=== PATIENT | female | born 1995 | race Caucasian/White ===

== ENCOUNTER 2024-12-24 13:34 | Outpatient (CLI) | payer OTHER, SELFPAY ==
--- NOTE | ~2024-12-24 | US_ITS ---
US soft tissue upper back Ordering provider: Salo Yin, GORGE History: . benign lipomatous neoplasm of skin subcutaneou . Comparison: None. FINDINGS/impression: Slightly hypoechoic area measuring 0.7 x 0.7 x 0.5 cm is noted which may represent a small cyst in th e area of concern. Other differential include lipoma and lymph node although this likely. Follow-up a dvised. Reviewed, dictated and finalized at location A.
--- OUTSIDE RECORDS SUMMARY | 2024-12-24 13:45 | XMS_ITS | Clinical Summary ---
Author Organization [facility] Address [address] [place] [address] Care Team Providers Care Senior Software Project Manager Name Role Phone Unavailable Primary Care Provider Unavailabl e Source Comments [facility],non-owned Affiliates and Associated Physician Practices is amultiple site organization consisting of ambulatory clinics and hospital sitesin [place], [place], [place] and [place]. This disclosure is being madepursuant to the Care Everywhere program and may not contain all information available regarding this patient. Last updated 18.[facility] Encounters Date Type Department Care Team Description 11/24/2024 Travel from Last 3 Months Social History Tobacco Use Types Packs/Day Years Used Date Smoking Tobacco: Never Assessed Comments Unknown Sex and Gender Information Value Date Recorded Sex Assigned at Not on file Legal Sex Female 3:24 PM CDT Gender Identity Not on file Sexual Orientation Not on file Plan of Treatment Upcoming Encounters Date Type Department Care Team (Late st Contact Info) Description 02/12/2025 2:00 PM CDT Office Visit [facility] - Ophthalmology [address] [place] [address] [phone] Dot Ricketts, CAGE [employer] SUPER[employer] [address] [place] [address] [place] [id number] Health Maintenance Due Date Last Done Comments PAP SMEAR 1995 HIV SCREENING 11/14/2010 HEPATITIS C SCREENING 11/10/2013 DTAP/TDAP/TD VACCINES (1 - Tdap) 11/14/2014 HEPATITIS B VACCINE (1 of 3 - 19+ 3-dose series) 11/14/2014 COVID-19 VACCINE (1 - 2023-2 5 season) 2024 DEPRESSION SCREENING 07/23/2024 INFLUENZA VACCINE (Season Ended) 2025 ZOSTER VACCINE (1 of 2) 11/14/2045 HIB VACCINE Aged Out No longer eligi ble based on patient's age to complete this topic HPV VACCINE Aged Out No longer eligi ble based on patient's age to complete this topic MENINGOCOCCAL (Group B) VACC INE SHARED DECISION-MAKING Aged Out No longer eligibl e based on patient's age to complete this topic MENINGOCOCCAL GROUPS A/C/Y/W VACCINE Aged Out No longer eligible b ased on patient's age to complete this topic PNEUMOCOCCAL VACCINE Aged Out No long er eligible based on patient's age to complete this topic
--- OUTSIDE RECORDS SUMMARY | 2024-12-24 13:45 | XMS_ITS | Data Portability ---
Author Organization [facility] Address [address] [place] [address] Assessment No assessment recorded. Plan of Treatment Reminders Order Date Submit Date Provider Last Modified By Organization Details Last Modified Time Details Appointments None recorded. Lab respiratory allergen panel - [facility] 2021 [facility], [address], [address], 19:18:38 food allergen panel, serum 2021 [facility], [address], [address], 19:18:39 CBC w/ auto diff 2021 [facility], [address] [place], [address], 01:09:41 TSH, serum or plasma 2021 [facility], [address], [address], 01:09:42 CMP, serum or plasma 2021 [facility], [address], [address], 01:09:40 magnesium, serum or plasma 2021 [place] [facility], [address] [place], [address], 01:09:39 Referral None recorded. Procedures None recorded. Surgeries None recorded. Imaging None recorded. Medication Orders Symbicort 160 mcg-4.5 mcg/actuati on HFA aerosol inhaler 2022 023 [facility], [address] [place], [address], 3 12:29:29 fluoxetine 20 mg capsule 2022 023 [facility], [address] [place], [address], 3 12:29:28 Symbicort 160 mcg-4.5 mcg/actuati on HFA aerosol inhaler 2021 022 [facility], [address] [place], [address], 2 10:54:24 fluox[facility] 20 mg capsule 2021 [facility] [address] [place], [address], 3 12:24:32 ProAir HFA 90 mcg/actuati on aerosol inhaler 2021 022 [facility], [address] [place], [address], 2 11:16:25 Breo Ellipta 100 mcg-25 mcg/dose powder for inhalation 2021 022 [facility], [address] [place], [address], 2 11:40:23 Singulair 10 mg tablet 2021 022 [facility], [address] [place], [address], 3 12:20:53 prednisone 20 mg tablet 2021 022 [facility], [address] [place] [address], [address], 11:00:48 Ventolin HFA 90 mcg/actuati on aerosol inhaler 2021 022 [facility], [address] [place] [address], [address], 09:36:29 Singulair 10 mg tablet 2021 022 [facility], [address] [place] [address], [address], 12:20:53 fluoxetine 40 mg capsule 2021 022 [facility], [address] [place] [address], [address], 10:29:42 fluoxetine 20 mg capsule 2021 022 [facility], [address] [place] [address], [address], 10:29:43 Patient TargetsNo targets recorded. Patient Instructions Encounter Date Encounter Id Patient Instructions Last Modified By Organization Details Last Modified Time 01/25/2022 [id number] depression treatment: care instructions Not available 01/25/2022 10:32:16 Assessment and plan discussed as noted above. Patient verbalizes understanding and agrees with plan. Instructed to call office with further questions or concerns. Total duration of time spent with patient: Minutes 20 Not available 01/25/2022 10:32:04 03/08/2022 [id number] complete PFT w/ post bronchodilator spirometry* [facility] Not available 09/24/2022 05:01:37 controlling your asthma: care instructions Not available 03/08/2022 11:39:52 Assessment and plan discussed as noted above. Patient verbalizes understanding and agrees with plan. Instructed to call office with further questions or concerns. Total duration of time spent with patient: Minutes 20 Not available 03/08/2022 11:40:02 05/09/2022 [id number] asthma attack: care instructions Not available 05/09/2022 10:54:27 controlling your asthma: care instructions Not available 05/09/2022 10:54:27 walking for exercise: care instructions Not available 05/09/2022 13:33:48 eating healthy foods: care instructions Not available 05/09/2022 13:33:48 Assessment and plan as noted above and discussed with patient. Follow up as needed if symptoms persist or worsen. Will contact patient with lab results and patient knows to call if they do not hear any results in a reasonable time frame. fu in one month Not available 05/09/2022 13:33:55 12/14/2022 [id number] asthma attack: care instructions Not available 12/14/2022 12:29:21 controlling your asthma: care instructions Not available 12/14/2022 12:29:21 walking for exercise: care instructions Not available 12/14/2022 12:29:21 eating healthy foods: care instructions Not available 12/14/2022 12:29:21 Assessment and plan discussed as noted above. Patient verbalizes understanding and agrees with plan. Instructed to call office with further questions or concerns. Total duration of time spent with patient: Minutes 20 Not available 12/14/2022 12:32:18 Reason for Referral None Reported. Results Created Date Observation Date Name Description Value Unit Range Abnormal Flag Note LastModifiedBy Organization Detail LastModifiedTime 03/10/2003/10/2022 MAGNE SIUM magnesium 2.0 mg/dL 1.5-2. 5 normal Not Available [facility] [address] [place], [address], 03/10/2022 01:09:39 03/10/20 22 03/10/2022 COMPR EHENS SULEMA METAB OLIC PANEL glucose 120 mg/dL 65-99 high Fasti ng refer ence inter girma For someo ne witho ut known diabe edwin, a gluco se value betwe en 100 and 125 mg/dL is consi stent with predi abete s and shoul d be confi rmed with a follo w-up test. Not Available [facility] [employer] [address] [place], [address], 03/10/2022 01:09:40 03/10/20 22 03/10/2022 COMPR EHENS SULEMA METAB OLIC PANEL urea nitrogen (BUN) 10 mg/dL 7-25 normal Not Available [facility] [address], [address], 03/10/2022 01:09:40 03/10/20 22 03/10/2022 COMPR EHENS SULEMA METAB OLIC PANEL creatinine 0.74 mg/dL 0.50-0 .96 normal Not Available [employer] [address] [address] [place], [address], 03/10/2022 01:09:40 03/10/20 22 03/10/2022 COMPR EHENS SULEMA METAB OLIC PANEL eGFR 114 mL/mi n/1.7 3m2 > or = 60 normal The eGFR is based on the CKD-E PI 2020 equat ion. To calcu late the new eGFR from a previ ous Creat inine or Cysta tin C resul t, go to https ://irlanda teresa.bienvenido argueta/susie ward s/ kdoqi /gfr% 5Fcal culat or Not Available [facility] [address] [address] [place], [address], 03/10/2022 01:09:40 03/10/20 22 03/10/2022 COMPR EHENS SULEMA METAB OLIC PANEL BUN/creatini ne ratio NOT APPLIC ABLE (calc ) 6-22 Not Available [facility] [address] [address] [place], [address], 03/10/2022 01:09:40 03/10/20 22 03/10/2022 COMPR EHENS SULEMA METAB OLIC PANEL sodium 137 mmol/ L 135-14 6 normal Not Available [address], [address], 03/10/2022 01:09:40 03/10/20 22 03/10/2022 COMPR EHENS SULEMA METAB OLIC PANEL potassium 3.9 mmol/ L 3.5-5. 3 normal Not Available [address], [address], 03/10/2022 01:09:40 03/10/20 22 03/10/2022 COMPR EHENS SULEMA METAB OLIC PANEL chloride 104 mmol/ L 98-110 normal Not Available [address], [address], 03/10/2022 01:09:40 03/10/20 22 03/10/2022 COMPR EHENS SULEMA METAB OLIC PANEL carbon dioxide 23 mmol/ L 20-32 normal Not Available [address], [address], 03/10/2022 01:09:40 03/10/20 22 03/10/2022 COMPR EHENS SULEMA METAB OLIC PANEL calcium 9.1 mg/dL 8.6-10 .2 normal Not Available [address], [address], 03/10/2022 01:09:40 03/10/20 22 03/10/2022 COMPR EHENS SULEMA METAB OLIC PANEL protein, total 7.0 g/dL 6.1-8. 1 normal Not Available [address], [address], 03/10/2022 01:09:40 03/10/20 22 03/10/2022 COMPR EHENS SULEMA METAB OLIC PANEL albumin 4.1 g/dL 3.6-5. 1 normal Not Available [address] [place], [address], 03/10/2022 01:09:40 03/10/20 22 03/10/2022 COMPR EHENS SULEMA METAB OLIC PANEL globulin 2.9 g/dL_ (calc ) 1.9-3. 7 normal Not Available [address] [address] [place], [address], 03/10/2022 01:09:40 03/10/20 22 03/10/2022 COMPR EHENS SULEMA METAB OLIC PANEL albumin/glob ulin ratio 1.4 (calc ) 1.0-2. 5 normal Not Available [address], [address], 03/10/2022 01:09:40 03/10/20 22 03/10/2022 COMPR EHENS SULEMA METAB OLIC PANEL bilirubin, total 0.6 mg/dL 0.2-1. 2 normal Not Available [address] [place], [address], 03/10/2022 01:09:40 03/10/20 22 03/10/2022 COMPR EHENS SULEMA METAB OLIC PANEL alkaline phosphatase 72 U/L 31-125 normal Not Available [address] [address] [place], [address], 03/10/2022 01:09:40 03/10/20 22 03/10/2022 COMPR EHENS SULEMA METAB OLIC PANEL AST 16 U/L 10-30 normal Not Available [address] [address] [place], [address], 03/10/2022 01:09:40 03/10/20 22 03/10/2022 COMPR EHENS SULEMA METAB OLIC PANEL ALT 13 U/L 6-29 normal Not Available [address] [address] [place], [address], 03/10/2022 01:09:40 08/19/20 22 03/10/2022 CBC (INCL UDES DIFF/ PLT) white blood cell count 7.9 thous and/u L 3.8-10 .8 normal Not Available [address], [address], 03/10/2022 01:09:41 03/10/20 22 03/10/2022 CBC (INCL UDES DIFF/ PLT) red blood cell count 4.82 madi on/uL 3.80-5 .10 normal Not Available [address], [address], 03/10/2022 01:09:41 03/10/20 22 03/10/2022 CBC (INCL UDES DIFF/ PLT) hemoglobin 13.8 g/dL 11.7-1 5.5 normal Not Available [address], [address], 03/10/2022 01:09:41 03/10/20 22 03/10/2022 CBC (INCL UDES DIFF/ PLT) hematocrit 42.4 % 35.0-4 5.0 normal Not Available [address], [address], 03/10/2022 01:09:41 03/10/20 22 03/10/2022 CBC (INCL UDES DIFF/ PLT) MCV 88.0 fL 80.0-1 00.0 normal Not Available [address], [address], 03/10/2022 01:09:41 03/10/20 22 03/10/2022 CBC (INCL UDES DIFF/ PLT) MCH 28.6 pg 27.0-3 3.0 normal Not Available [address], [address], 03/10/2022 01:09:41 03/10/20 22 03/10/2022 CBC (INCL UDES DIFF/ PLT) MCHC 32.5 g/dL 32.0-3 6.0 normal Not Available [address], [address], 03/10/2022 01:09:41 03/10/20 22 03/10/2022 CBC (INCL UDES DIFF/ PLT) RDW 13.5 % 11.0-1 5.0 normal Not Available [address], [address], 03/10/2022 01:09:41 03/10/20 22 03/10/2022 CBC (INCL UDES DIFF/ PLT) platelet count 388 thous and/u L 140-40 0 normal Not Available [address], [address], 03/10/2022 01:09:41 03/10/20 22 03/10/2022 CBC (INCL UDES DIFF/ PLT) MPV 9.9 fL 7.5-12 .5 normal Not Available [address], [address], 03/10/2022 01:09:41 03/10/20 22 03/10/2022 CBC (INCL UDES DIFF/ PLT) absolute neutrophils 5728 cells /uL 1500-7 800 normal Not Available [address], [address], 03/10/2022 01:09:41 03/10/20 22 03/10/2022 CBC (INCL UDES DIFF/ PLT) absolute lymphocytes 1754 cells /uL 850-39 00 normal Not Available [address], [address], 03/10/2022 01:09:41 03/10/20 22 03/10/2022 CBC (INCL UDES DIFF/ PLT) absolute monocytes 340 cells /uL 200-95 0 normal Not Available [address], [address], 03/10/2022 01:09:41 03/10/20 22 03/10/2022 CBC (INCL UDES DIFF/ PLT) absolute eosinophils 47 cells /uL 15-500 normal Not Available [address], [address], 03/10/2022 01:09:41 03/10/20 22 03/10/2022 CBC (INCL UDES DIFF/ PLT) absolute basophils 32 cells /uL 0-200 normal Not Available [address], [address], 03/10/2022 01:09:41 03/10/20 22 03/10/2022 CBC (INCL UDES DIFF/ PLT) neutrophils 72.5 % normal Not Available [facility] [address], [address], 03/10/2022 01:09:41 03/10/20 22 03/10/2022 CBC (INCL UDES DIFF/ PLT) lymphocytes 22.2 % normal Not Available [facility] [address], [address], 03/10/2022 01:09:41 03/10/20 22 03/10/2022 CBC (INCL UDES DIFF/ PLT) monocytes 4.3 % normal Not Available [facility] [address], [address], 03/10/2022 01:09:41 03/10/20 22 03/10/2022 CBC (INCL UDES DIFF/ PLT) eosinophils 0.6 % normal Not Available [facility] [address], [address], 03/10/2022 01:09:41 03/10/20 22 03/10/2022 CBC (INCL UDES DIFF/ PLT) basophils 0.4 % normal Not Available [facility] [address], [address], 03/10/2022 01:09:41 03/10/20 22 03/10/2022 TSH W/REF SILVANO TO FT4 TSH w/reflex to FT4 0.58 mIU/L normal Refer ence Range > or = 20 Years 0.40- 4.50 Pregn gonzalo Range s First trime ster 0.26- 2.66 Secon d trime ster 0.55- 2.73 Third trime ster 0.43- 2.91 NO COLLE CTION DATE RECEI KLEBER. WE HAVE USED THE DATE THE SPECI MEN WAS RECEI KLEBER BY THIS LABOR ATORY THE COLLE CTION DATE. IF THIS IS INCOR RECT, PLEAS E CONTA CT CLIEN T SERVI CLARE. PHONE NUMBE R: [phone] Not Available [facility] [employer] [facility] [address] [address] [place], [address], 03/10/2022 01:09:42 05/09/20 22 05/11/2022 RESPI RATOR Y ALLER GY PROFI LE REGIO N VIII dermatophago ides pteronyssinu s (D1) IgE <0.10 kU/L normal Not Available [facility] [address] [place], [address], 05/11/2022 19:18:38 05/09/20 22 05/11/2022 RESPI RATOR Y ALLER GY PROFI LE REGIO N VIII class 0 Not Available [facility] [address] [address] [place], [address], 05/11/2022 19:18:38 05/09/20 22 05/11/2022 RESPI RATOR Y ALLER GY PROFI LE REGIO N VIII dermatophago ides farinae (D2) IgE <0.10 kU/L normal Not Available [employer] [address], [address], 05/11/2022 19:18:38 05/09/20 22 05/11/2022 RESPI RATOR Y ALLER GY PROFI LE REGIO N VIII class 0 Not Available [facility] [address], [address], 05/11/2022 19:18:38 05/09/20 22 05/11/2022 RESPI RATOR Y ALLER GY PROFI LE REGIO N VIII penicillium notatum (M1) IgE <0.10 kU/L normal Not Available [address] [address] [place], [address], 05/11/2022 19:18:38 05/09/20 22 05/11/2022 RESPI RATOR Y ALLER GY PROFI LE REGIO N VIII class 0 Not Available [address], [address], 05/11/2022 19:18:38 05/09/20 22 05/11/2022 RESPI RATOR Y ALLER GY PROFI LE REGIO N VIII cladosporium herbarum (M2) IgE <0.10 kU/L normal Not Available [address], [address], 05/11/2022 19:18:38 05/09/20 22 05/11/2022 RESPI RATOR Y ALLER GY PROFI LE REGIO N VIII class 0 Not Available [address], [address], 05/11/2022 19:18:38 05/09/20 22 05/11/2022 RESPI RATOR Y ALLER GY PROFI LE REGIO N VIII aspergillus fumigatus (M3) IgE <0.10 kU/L normal Not Available [address], [address], 05/11/2022 19:18:38 05/09/20 22 05/11/2022 RESPI RATOR Y ALLER GY PROFI LE REGIO N VIII class 0 Not Available [address] [address] [place], [address], 05/11/2022 19:18:38 05/09/20 22 05/11/2022 RESPI RATOR Y ALLER GY PROFI LE REGIO N VIII alternaria alternata (M6) IgE <0.10 kU/L normal Not Available [address], [address], 05/11/2022 19:18:38 05/09/20 22 05/11/2022 RESPI RATOR Y ALLER GY PROFI LE REGIO N VIII class 0 Not Available [address], [address], 05/11/2022 19:18:38 05/09/20 22 05/11/2022 RESPI RATOR Y ALLER GY PROFI LE REGIO N VIII CAT dander (E1) IgE <0.10 kU/L normal Not Available [address], [address], 05/11/2022 19:18:38 05/09/20 22 05/11/2022 RESPI RATOR Y ALLER GY PROFI LE REGIO N VIII class 0 Not Available [address], [address], 05/11/2022 19:18:38 05/09/20 22 05/11/2022 RESPI RATOR Y ALLER GY PROFI LE REGIO N VIII dog dander (E5) IgE <0.10 kU/L normal Not Available [address], [address], 05/11/2022 19:18:38 05/09/20 22 05/11/2022 RESPI RATOR Y ALLER GY PROFI LE REGIO N VIII class 0 Not Available [address], [address], 05/11/2022 19:18:38 05/09/20 22 05/11/2022 RESPI RATOR Y ALLER GY PROFI LE REGIO N VIII cockroach (I6) IgE <0.10 kU/L normal Not Available [address] [place], [address], 05/11/2022 19:18:38 05/09/20 22 05/11/2022 RESPI RATOR Y ALLER GY PROFI LE REGIO N VIII class 0 Not Available [address] [address] [place], [address], 05/11/2022 19:18:38 05/09/20 22 05/11/2022 RESPI RATOR Y ALLER GY PROFI LE REGIO N VIII maple (box elder) (T1) IgE 0.18 kU/L high Not Available [address], [address], 05/11/2022 19:18:38 05/09/20 22 05/11/2022 RESPI RATOR Y ALLER GY PROFI LE REGIO N VIII class 0/1 Not Available [address], [address], 05/11/2022 19:18:38 05/09/20 22 05/11/2022 RESPI RATOR Y ALLER GY PROFI LE REGIO N VIII mountain cedar (T6) IgE 0.13 kU/L high Not Available [address] [address] [facility] [place], [address], 05/11/2022 19:18:38 05/09/20 22 05/11/2022 RESPI RATOR Y ALLER GY PROFI LE REGIO N VIII class 0/1 Not Available [address] [address] [place], [address], 05/11/2022 19:18:38 05/09/20 22 05/11/2022 RESPI RATOR Y ALLER GY PROFI LE REGIO N VIII walnut tree (T10) IgE 0.11 kU/L high Not Available [facility] [address], [address], 05/11/2022 19:18:38 05/09/20 22 05/11/2022 RESPI RATOR Y ALLER GY PROFI LE REGIO N VIII class 0/1 Not Available [address], [address], 05/11/2022 19:18:38 05/09/20 22 05/11/2022 RESPI RATOR Y ALLER GY PROFI LE REGIO N VIII sycamore (T11) IgE 0.14 kU/L high Not Available [address], [address], 05/11/2022 19:18:38 05/09/20 22 05/11/2022 RESPI RATOR Y ALLER GY PROFI LE REGIO N VIII class 0/1 Not Available [address], [address], 05/11/2022 19:18:38 05/09/20 22 05/11/2022 RESPI RATOR Y ALLER GY PROFI LE REGIO N VIII cottonwood (T14) IgE <0.10 kU/L normal Not Available [address], [address], 05/11/2022 19:18:38 05/09/20 22 05/11/2022 RESPI RATOR Y [employer]ER GY PROFI LE REGIO N VIII class 0 Not Available [address], [address], 05/11/2022 19:18:38 05/09/20 22 05/11/2022 RESPI RATOR Y ALLER GY PROFI LE REGIO N VIII white travis (T15) IgE 0.12 kU/L high Not Available [address], [address], 05/11/2022 19:18:38 05/09/20 22 05/11/2022 RESPI RATOR Y ALLER GY PROFI LE REGIO N VIII class 0/1 Not Available [address], [address], 05/11/2022 19:18:38 05/09/20 22 05/11/2022 RESPI RATOR Y ALLER GY PROFI LE REGIO N VIII oak (T7) IgE 0.14 kU/L high Not Available [address] [place], [address], 05/11/2022 19:18:38 05/09/20 22 05/11/2022 RESPI RATOR Y ALLER GY PROFI LE REGIO N VIII class 0/1 Not Available [address] [address] [place], [address], 05/11/2022 19:18:38 05/09/20 22 05/11/2022 RESPI RATOR Y ALLER GY PROFI LE REGIO N VIII elm (T8) IgE 0.16 kU/L high Not Available [address], [address], 05/11/2022 19:18:38 05/09/20 22 05/11/2022 RESPI RATOR Y ALLER GY PROFI LE REGIO N VIII class 0/1 Not Available [address] [address] [facility] [place], [address], 05/11/2022 19:18:38 05/09/20 22 05/11/2022 RESPI RATOR Y ALLER GY PROFI LE REGIO N VIII hickory/peca n tree (T22) IgE <0.10 kU/L normal Not Available [address] [address] [place], [address], 05/11/2022 19:18:38 05/09/20 22 05/11/2022 RESPI RATOR Y ALLER GY PROFI LE REGIO N VIII class 0 Not Available [facility] [address] [address] [place], [address], 05/11/2022 19:18:38 05/09/20 22 05/11/2022 RESPI RATOR Y ALLER GY PROFI LE REGIO N VIII white mulberry (T70) IgE <0.10 kU/L normal Not Available [address], [address], 05/11/2022 19:18:38 05/09/20 22 05/11/2022 RESPI RATOR Y ALLER GY PROFI LE REGIO N VIII class 0 Not Available [address], [address], 05/11/2022 19:18:38 05/09/20 22 05/11/2022 RESPI RATOR Y ALLER GY PROFI LE REGIO N VIII bermuda grass (g2) IgE <0.10 kU/L normal Not Available [address], [address], 05/11/2022 19:18:38 05/09/20 22 05/11/2022 RESPI RATOR Y ALLER GY PROFI LE REGIO N VIII class 0 Not Available [address], [address], 05/11/2022 19:18:38 05/09/20 22 05/11/2022 RESPI RATOR Y ALLER GY PROFI LE REGIO N VIII ray grass (g6) IgE 0.12 kU/L high Not Available [address], [address], 05/11/2022 19:18:38 05/09/20 22 05/11/2022 RESPI RATOR Y ALLER GY PROFI LE REGIO N VIII class 0/1 Not Available [address], [address], 05/11/2022 19:18:38 05/09/20 22 05/11/2022 RESPI RATOR Y ALLER GY PROFI LE REGIO N VIII common ragweed (short) (W1) IgE 0.10 kU/L high Not Available [address] [address] [place], [address], 05/11/2022 19:18:38 05/09/20 22 05/11/2022 RESPI RATOR Y ALLER GY PROFI LE REGIO N VIII class 0/1 Not Available [address] [address] [place], [address], 05/11/2022 19:18:38 05/09/20 22 05/11/2022 RESPI RATOR Y ALLER GY PROFI LE REGIO N VIII rough pigweed (W14) IgE 0.10 kU/L high Not Available [address], [address], 05/11/2022 19:18:38 05/09/20 22 05/11/2022 RESPI RATOR Y ALLER GY PROFI LE REGIO N VIII class 0/1 Not Available [address] [address] [place], [address], 05/11/2022 19:18:38 05/09/20 22 05/11/2022 RESPI RATOR Y ALLER GY PROFI LE REGIO N VIII pakistani thistle (W11) IgE <0.10 kU/L normal Not Available [address] [address] [place], [address], 05/11/2022 19:18:38 05/09/20 22 05/11/2022 RESPI RATOR Y ALLER GY PROFI LE REGIO N VIII class 0 Not Available [facility] [address] [address] [place], [address], 05/11/2022 19:18:38 05/09/20 22 05/11/2022 RESPI RATOR Y ALLER GY PROFI LE REGIO N VIII rough musa elder (W16) IgE 0.13 kU/L high Not Available [address] [address] [place], [address], 05/11/2022 19:18:38 05/09/20 22 05/11/2022 RESPI RATOR Y ALLER GY PROFI LE REGIO N VIII class 0/1 Not Available [address], [address], 05/11/2022 19:18:38 05/09/20 22 05/11/2022 RESPI RATOR Y ALLER GY PROFI LE REGIO N VIII mouse urine proteins (E72) IgE <0.10 kU/L normal Not Available [address] [address] [place], [address], 05/11/2022 19:18:38 05/09/20 22 05/11/2022 RESPI RATOR Y ALLER GY PROFI LE REGIO N VIII class 0 Not Available [address] [address] [place], [address], 05/11/2022 19:18:38 05/09/20 22 05/11/2022 RESPI RATOR Y ALLER GY PROFI LE REGIO N VIII immunoglobul in E 15 kU/L <or=11 4 normal Not Available [address] [address] [place], [address], 05/11/2022 19:18:38 05/09/20 22 05/11/2022 FOOD ALLER GY PROFI LE WITH REFLE XES egg white (F1) IgE <0.10 kU/L normal Not Available [address] [address] [place], [address], 05/11/2022 19:18:39 05/09/20 22 05/11/2022 FOOD ALLER GY PROFI LE WITH REFLE XES class 0 Not Available [address], [address], 05/11/2022 19:18:39 05/09/20 22 05/11/2022 FOOD ALLER GY PROFI LE WITH REFLE XES peanut (F13) IgE 0.15 kU/L high Not Available [address], [address], 05/11/2022 19:18:39 05/09/20 22 05/11/2022 FOOD ALLER GY PROFI LE WITH REFLE XES class 0/1 Not Available [address], [address], 05/11/2022 19:18:39 05/09/20 22 05/11/2022 FOOD ALLER GY PROFI LE WITH REFLE XES wheat (F4) IgE <0.10 kU/L normal Not Available [address], [address], 05/11/2022 19:18:39 05/09/20 22 05/11/2022 FOOD ALLER GY PROFI LE WITH REFLE XES class 0 Not Available [address], [address], 05/11/2022 19:18:39 05/09/20 22 05/11/2022 FOOD ALLER GY PROFI LE WITH REFLE XES walnut (F256) IgE 0.11 kU/L high Not Available [address], [address], 05/11/2022 19:18:39 05/09/20 22 05/11/2022 FOOD ALLER GY PROFI LE WITH REFLE XES class 0/1 Not Available [address], [address], 05/11/2022 19:18:39 05/09/20 22 05/11/2022 FOOD ALLER GY PROFI LE WITH REFLE XES codfish (F3) IgE <0.10 kU/L normal Not Available [address], [address], 05/11/2022 19:18:39 05/09/20 22 05/11/2022 FOOD ALLER GY PROFI LE WITH REFLE XES class 0 Not Available [facility] [address] [place], [address], 05/11/2022 19:18:39 05/09/2005/11/2022 FOOD ALLER GY PROFI LE WITH REFLE XES cow's milk (F2) IgE <0.10 kU/L normal Not Available [address], [address], 05/11/2022 19:18:39 05/09/20 22 05/11/2022 FOOD ALLER GY PROFI LE WITH REFLE XES class 0 Not Available [address], [address], 05/11/2022 19:18:39 05/09/20 22 05/11/2022 FOOD ALLER GY PROFI LE WITH REFLE XES soybean (F14) IgE <0.10 kU/L normal Not Available [address], [address], 05/11/2022 19:18:39 05/09/20 22 05/11/2022 FOOD ALLER GY PROFI LE WITH REFLE XES class 0 Not Available [address], [address], 05/11/2022 19:18:39 05/09/20 22 05/11/2022 FOOD ALLER GY PROFI LE WITH REFLE XES shrimp (F24) IgE <0.10 kU/L normal Not Available [address], [address], 05/11/2022 19:18:39 05/09/20 22 05/11/2022 FOOD ALLER GY PROFI LE WITH REFLE XES class 0 Not Available [place] [address] [place], [address], 05/11/2022 19:18:39 05/09/20 22 05/11/2022 FOOD ALLER GY PROFI LE WITH REFLE XES scallop (F338) IgE <0.10 kU/L normal Not Available [facility] [address], [address], 05/11/2022 19:18:39 05/09/20 22 05/11/2022 FOOD ALLER GY PROFI LE WITH REFLE XES class 0 Not Available [facility] [address] [place] [address] [place], [address], 05/11/2022 19:18:39 05/09/20 22 05/11/2022 FOOD ALLER GY PROFI LE WITH REFLE XES sesame seed (F10) IgE 0.23 kU/L high Not Available [address], [address], 05/11/2022 19:18:39 05/09/20 22 05/11/2022 FOOD ALLER GY PROFI LE WITH REFLE XES class 0/1 Not Available [address], [address], 05/11/2022 19:18:39 05/09/20 22 05/11/2022 FOOD ALLER GY PROFI LE WITH REFLE XES hazelnut (F17) IgE 0.18 kU/L high Not Available [address], [address], 05/11/2022 19:18:39 05/09/20 22 05/11/2022 FOOD ALLER GY PROFI LE WITH REFLE XES class 0/1 Not Available [facility] [address], [address], 05/11/2022 19:18:39 05/09/20 22 05/11/2022 FOOD ALLER GY PROFI LE WITH REFLE XES cashew nut (F202) IgE <0.10 kU/L normal Not Available [facility] [address], [address], 05/11/2022 19:18:39 05/09/20 22 05/11/2022 FOOD ALLER GY PROFI LE WITH REFLE XES class 0 Not Available [address], [address], 05/11/2022 19:18:39 05/09/20 22 05/11/2022 FOOD ALLER GY PROFI LE WITH REFLE XES almond (F20) IgE <0.10 kU/L normal Not Available [address], [address], 05/11/2022 19:18:39 05/09/20 22 05/11/2022 FOOD ALLER GY PROFI LE WITH REFLE XES class 0 Not Available [address], [address], 05/11/2022 19:18:39 05/09/20 22 05/11/2022 FOOD ALLER GY PROFI LE WITH REFLE XES salmon (F41) IgE <0.10 kU/L normal Not Available [address], [address], 05/11/2022 19:18:39 05/09/20 22 05/11/2022 FOOD ALLER GY PROFI LE WITH REFLE XES class 0 Not Available [address], [address], 05/11/2022 19:18:39 05/09/20 22 05/11/2022 FOOD ALLER GY PROFI LE WITH REFLE XES tuna (F40) IgE <0.10 kU/L normal Not Available [address], [address], 05/11/2022 19:18:39 05/09/20 22 05/11/2022 FOOD ALLER GY PROFI LE WITH REFLE XES class 0 Not Available [address], [address], 05/11/2022 19:18:39 05/09/20 22 05/11/2022 INTER PRETA TION interpretati on Speci fic Level of Aller gen IGE Class kU/L Speci fic IGE Antib susan ----- ----- ---- ----- ----- ----- ---- 0 <0.10 Absen t/Und etect able 0/1 0.10- 0.34 Very Low Level 1 0.35- 0.69 Low Level 2 0.70- 3.49 Moder ate Level 3 3.50- 17.4 High Level 4 17.5- 49.9 Very High Level 5 50-10 0 Very High Level 6 >100 Very High Level The clini fanny relev ance of aller gen resul ts of 0.10- 0.34 kU/L are undet ermin ed and inten ded for speci alist use. Aller gens denot ed with a inclu de resul ts using one or more sydni te speci fic reage nts. In those cases , the test was devel oped and its sydni tical perfo rmanc e rubi cteri stics have been deter mined by [employer] [facility]. It has not been clear ed or appro kleber by the U.S. Food and Drug Admin istra tion. This assay has been valid ated pursu ant to the CLIA regul ation s and is used for clini fanny purpo ses. Not Available [employer] [address] [place], [address], 05/11/2022 19:18:40 05/09/20 22 05/11/2022 PEANU T COMPO NENT PANEL shasta H 1 (F422) <0.10 kU/L <0.10 normal Not Available [employer] [facility] [address] [place], [address], 05/11/2022 19:18:41 05/09/20 22 05/11/2022 PEANU T COMPO NENT PANEL shasta H 2 (F423) <0.10 kU/L <0.10 normal Not Available [address] [address] [place], [address], 05/11/2022 19:18:41 05/09/20 22 05/11/2022 PEANU T COMPO NENT PANEL shasta H 3 (F424) <0.10 kU/L <0.10 normal Not Available [address] [address] [place], [address], 05/11/2022 19:18:41 05/09/20 22 05/11/2022 PEANU T COMPO NENT PANEL shasta H 6 (F447) <0.10 kU/L <0.10 normal Not Available [address] [address] [place], [address], 05/11/2022 19:18:41 05/09/20 22 05/11/2022 PEANU T COMPO NENT PANEL shasta H 8 (F352) <0.10 kU/L <0.10 normal Not Available [address] [address] [place], [address], 05/11/2022 19:18:41 05/09/2005/11/2022 PEANU T COMPO NENT PANEL shasta H 9 (F427) <0.10 kU/L <0.10 normal React ivity to whole peanu t witho ut react ivity to the peanu t compo nent( s) teste d may be expla ined by IgE react ivity to other peanu t prote ins, cross -reac tive polle n prote ins, or cross -reac tive carbo hydra edwin. Test code 59681 , CCD and Profi ritika IgE Cross -Reac tivit y Panel , may be order ed to detec t IgE that cross -reac ts with peanu t, tree nuts, and other plant aller gens. Addit ional infor pedro singh can be found at http: //www .phad ia.co m Not Available [place] [address] [address] [place], [address], 05/11/2022 19:18:41 Result Notes None recorded. Problems Name Problem SNOMED Code Status Onset Date Resolution Date Notes Provider Name and Address Organization Details Recorded Time Posttraum atic headache 81055510 Active Original Descriptio n: Post-traum atic headache, not intractabl e, unspecifie d chronicity pattern; Not Available [facility] 2 06:16:29 Depressiv e disorder 38298185 Active Original Descriptio n: Depressive disorder; Not Available [facility] 2 06:16:29 Environme ntal allergy 944741615 Active Original Descriptio n: Environmen earl allergies; Not Available [facility] 2 06:16:29 Attention deficit hyperacti vity disorder 571300528 Active 2021 Not Available [facility] 2 06:16:29 Asthma 737991510 Active 2021 JAYLA WIN APRN, , GAS ROLLER OPERATOR [address] [facility],MELISSA MEI [[email or web address] ], [place], [place], [facility] [place] [facility] 2 10:48:48 Problem Notes None recorded. Procedures Surgical History Date Name Laterality Status Provider Name and Address Organization Details Recorded Time 2 Nebulizer tx completed JAYLA WIN APRN, , G[employer] ROLLER OPERATOR [address] [facility],MELISSA MEI [[email or web address]], [place], [facility] [place] [facility] 05/09/2022 10:55:12 Imaging Results None recorded. Procedure Notes None recorded. Medical Equipment None Reported. Allergies Allergen ID Allergen Name Allergen Category Reaction Reaction Severity Criticality Documentation Date Start Date Code Code System Note Provider Name and Address Organization Details Recorded Time 2921 Bactrim medicatio n Not available Not available Not available 08/03/20212018 23736 9 RxNorm Not Available [facility] 2 01:25:37 Medications Name Sig Start Date Stop Date Status Note LastModified by Organization Details LastModified Time fluoxetine 40 mg capsule Take 1 capsule by mouth once daily 2022 active Not Available Not Available Not Avai lable prednisone 20 mg tablet 2 po q day x 5 days then 1 po q day x 5 days 03/08 completed Not Available Not Available Not Available montelukas t 10 mg tablet Take 1 tablet every day by oral route. 12/14 completed Not Available Not Available Not Available fluoxetine 20 mg capsule Take 1 capsule by mouth once daily 2022 active 60 mg total dosage Not Available Not Available Not Available ProAir HFA 90 mcg/actuat ion aerosol inhaler Inhale 2 puffs every 4 hours by inhalati on route as needed. 2021 active Not Available Not Available Not Avai lable Xopenex HFA 45 mcg/actuat ion aerosol inhaler Inhale 2 puffs every 4-6 hours by inhalati on route as needed. 2021 active Not Available Not Available Not Avai lable Symbicort 160 mcg-4.5 mcg/actuat ion HFA aerosol inhaler Inhale 2 puffs twice a day by inhalati on route. 2022 active Not Available Not Available Not Avai lable Breo Ellipta 100 mcg-25 mcg/dose powder for inhalation Inhale 1 puff every day by inhalati on route. 05/10 completed Not Available Not Available Not Available Vitals Date Recorded Body height Body mass index (BMI) Body weight Body temperature Oxygen saturation Oxygen saturation in Arterial blood by Pulse oximetry Heart rate Systolic blood pressure Diastolic blood pressure Provider Name and Address Organization Details Last Updated DateTime 3 182.88 cm 30.5 kg/m2 239169. 28 g 97.1 [degF] 98 % 98 % 81 /min 118 mm[Hg] 78 mm[Hg] JESSICA HERNANDEZ [facility] 3 12:23:11 Date Recorded Body height Body mass index (BMI) Body weight Provider Name and Address Organization Details Last Updated DateTime 01/25/2022 182.88 cm 31.2 kg/m2 475033.25 g LOU NOLASCO [facility] 01/25/2022 10:16:28 Date Recorded Body height Body mass index (BMI) Body weight Body temperature Oxygen saturation Oxygen saturation in Arterial blood by Pulse oximetry Heart rate Systolic blood pressure Diastolic blood pressure Provider Name and Address Organization Details Last Updated DateTime 2 182.88 cm 31.5 kg/m2 765289. 43 g 98 [degF] 97 % 97 % 79 /min 100 mm[Hg] 62 mm[Hg] JESSICA HERNANDEZ [place] [facility] 2 11:00:20 Date Recorded Body height Oxygen saturation Oxygen saturation in Arterial blood by Pulse oximetry Heart rate Body temperature Body mass index (BMI) Body weight Systolic blood pressure Diastolic blood pressure Provider Name and Address Organization Details Last Updated DateTime 2 182.88 cm 98 % 98 % 86 /min 97.1 [degF] 31.9 kg/m2 918925. 21 g 128 mm[Hg] 82 mm[Hg] JESSICA HERNANDEZ [place] [facility] 2 09:43:47 Social History Question Answer Notes LastModified by Organizat ion Details LastModified Time Tobacco Smoking Status Never Smoker LOU [email or web address] [facility] 01/25/2022 10:17:41 Do You Have An Advance Directive? No Information not available 07/11/2021 What Is Your Level Of Caffeine Consumption? Occasional Information not available 07/11/2021 In The 14 Days Before Symptom Onset, Have You Had Close Contact With A Laboratory-confir med COVID-19 While That Case Was Ill? No [email or web address] Information not available 01/25/2022 In The 14 Days Before Symptom Onset, Have You Had Close Contact With A Person Who Is Under Investigation For COVID-19 While That Person Was Ill? No [email or web address] Information not available 01/25/2022 Have You Been To An Area Known To Be High Risk For COVID-19? No Information not available 01/25/2022 What Type Of Diet Are You Following? REGULAR Information not available 07/11/2021 Have You Processed Blood Or Body Fluids From An Ebola Virus Disease Patient Without Appropriate PPE? No [email or web address] Information not available 01/25/2022 Do You Reside In Or Have You Traveled To An Area Where Ebola Virus Transmission Is Active? No [email or web address] Information not available 01/25/2022 What Is Your Home Situation? Other Information not available 07/11/2021 In The Past 12 Months, Did You Smoke Pot, Use Another Street Drug, Or Use A Prescription Painkiller, Stimulant, Or Sedative For A Non-medical Reason? No Information not available 03/08/2022 Date Of The Documented SBIRT Follow-up Plan 12/14/2022 Information not available 12/14/2022 Most Recent Hospital Discharge Date 01/24/2022 [email or web address] Information not available 01/24/2022 Encounter Type Emergency Department Lidya De Santiago [email or web address] Information not available 01/24/2022 Do You Use An Electronic Nicotine Delivery System (Vaping)? No Information not available 12/14/2022 ENDS Screening Date 12/14/2022 Information not available 12/14/2022 Do You Have A Medical Power Of Access Clinician? No Information not available 12/14/2022 What Was The Date Of Your Most Recent Tobacco Screening? 12/14/2022 Information not available 12/14/2022 What Is Your Relationship Status? Single Information not available 07/11/2021 Do You Use Your Seat Belt Or Car Seat Routinely? Yes Information not available 07/11/2021 Are You Passively Exposed To Smoke? Yes Information no t available 05/09/2022 Do You Use Sunscreen Routinely? No Information not available 07/11/2021 Sex: Female Functional Status Question Answer Note LastModified by Organizat ion Details LastModified Time Do you use any illicit or recreational drugs? No [email or web address] Information not available 01/25/2022 Do you or have you ever used any other forms of tobacco or nicotine? No Information not available 07/11/2021 What is your level of alcohol consumption? Occasional Drinks 1-2 drinks monthly or less Information not available 07/11/2021 Are you currently employed? Yes Information not available 07/11/2021 Are you able to care for yourself? Yes Information not available 07/11/2021 What is your exercise level? Occasional Information not available 07/11/2021 Mental Status None recorded. Family History Relationship Description Onset Age of this Age Resolved Age Notes LastModified by Organization Details LastModified Time Father Migraine [email or web address] Not availabl e 07/11/2021 23:48:55 Paternal Grandmother Migraine [email or web address] Not available 23:48:55 Mother Hypertensive disorder [email or web address] Not available 2020 23:48:55 Sister Irritable bowel syndrome [email or web address] Not available 2020 23:48:55 Medical History No medical history recorded. Gynecological HistoryNo gynecological history recorded. Obstetrics History GPAL:G 0 P 0 0 0 0 Immunizations Vaccine Type Date Status Note Provider Nam e and Address Organization Details Recorded Time Influenza, split virus, quadrivalent, preservative 1 completed JESSICA HUNZE null[place] [facility] 12/14/2022 12:19:16 MMR 7 completed JESSICA HUNZE [place] [facility] 12/14/2022 12:19:16 MMR 0 completed JESSICA HUNZE [place] [facility] 12/14/2022 12:19:16 COVID-19, mRNA, LNP-S, PF, 100 mcg/0.5mL dose or 50 mcg/0.25mL dose 2 completed JESSICA HUNZE [place] [facility] 12/14/2022 12:19:16 COVID-19, mRNA, LNP-S, PF, 100 mcg/0.5mL dose or 50 mcg/0.25mL dose 2 completed JESSICA HUNZE [place] [facility] 12/14/2022 12:19:16 COVID-19, mRNA, LNP-S, PF, 30 mcg/0.3 mL dose 0 completed JESSICA HUNZE [place] [facility] 12/14/2022 12:19:16 Tdap 1 completed JESSICA [place]UNZE [place] [facility] 12/14/2022 12:19:16 varicella 9 completed JESSICA [place] [facility] 12/14/2022 12:19:16 DTP 0 completed JESSICA [place]UNZE [place] [facility] 12/14/2022 12:19:16 Hep B, unspecified formulation 6 completed JESSICA HUNZE [place] [facility] 12/14/2022 12:19:16 Hep B, unspecified formulation 6 completed [place]ESSICA [place] [facility] 12/14/2022 12:19:17 Hep B, unspecified formulation 6 completed JESSICA [place]UN[place] [facility] 12/14/2022 12:19:17 OPV 6 completed JESSICA HUNZE [place] [facility] 12/14/2022 12:19:17 OPV 6 completed JESSICA HUNZE [place] [facility] 12/14/2022 12:19:17 OPV 6 completed JESSICA HUNZE [place] [facility] 12/14/2022 12:19:17 DTP-Hib 6 completed JESSICA [place]ZE [place] [facility] 12/14/2022 12:19:17 DTP-Hib 6 completed [place]ESS[place] [facility] 12/14/2022 12:19:17 DTP-Hib 6 completed [place]ESS[place] [facility] 12/14/2022 12:19:17 Hib (HbOC) 7 completed JESSICA [place] [facility] 12/14/2022 12:19:17 DTaP 7 completed JESSICA H[place] [facility] 12/14/2022 12:19:17 Influenza, split virus, quadrivalent, PF 9 completed JESSICA H[place]ZE [place] [facility] 12/14/2022 12:19:17 Past Encounters Encounter ID Performer Location Encounter Start Date Encounter Closed Date Diagnosis/Indication Diagnosis SNOMED-CT Code Diagnosis ICD10 Code Diagnosis Note [id number] TAMI MOE MD [place] [id number] [address] [facility] [place] [address] 01/25/2022 10:08:03 01/25/2022 10:38:56 Exacerbation of intermittent asthma 609741733 J45.21 start prednisone today, prn albuterol, singulair today as below Depressive disorder 1018 9007 F32.A clinically stable on fluoxetine , Counseled patient on the potential for increase in suicidal ideation/i ntention when starting or increasing the dose of antidepres makenzie medication (s). The patient, who is of sound mind and in full understand ing, wishes to proceed with treatment. The patient understand s to immediatel y stop the antidepres makenzie(s) and call for 911 immediatel y should thoughts of suicide occur. Explained that medication can take up to 6 weeks to see full effect of medication . F/U 1 month for evaluation of anxiety and medication effectiven ess, or sooner with concerns or worsening symptoms. [id number] TAMI MOE MD [address] [address] 03/08/2022 10:44:28 03/08/2022 11:33:25 Asthma 958035254 J45.909 change ventolin to proair to see if helps more, start breo, continue singulair, complete pft as below Intolerant of heat 70833 007 R20.8 monitor labs as below [id number] TAMI MOE MD [address] [address] 05/09/2022 09:36:17 05/09/2022 11:25:00 Depressive disorder 44434985 F32.A requesting refill while in office Environmental allergy 42 7699206 T78.49XD cat for 6 years , dog for about a yearrecomm end cont claritin, cont singular 10mg daily Asthma 196453534 J45.90 9 Albuterol as needed for cough/whee ze. If using more than 2 times per week as a rescue inhaler when not acutely ill, will need to be evaluated. stop breo , start symbicort 2 puffs bid advised to rinse mouth after use Body mass index 30+ - obesity 460639312 Z68.31 [id number] TAMI MOE MD [address] [address] 12/14/2022 12:10:11 12/14/2022 12:44:26 Asthma 098024880 J45.909 Albuterol as needed for cough/whee ze. If using more than 2 times per week as a rescue inhaler when not acutely ill, will need to be evaluated. Clinically stable on symbicort today as below, continue albuterol as below. Depressive disorder 5546 2085 F32.A Clinically stable on fluoxetine today, Patient is in sound mind, denies side effects from medication . Denies suicidal and homidical ideation. Instructed to not discontinu e medication s abruptly. Black box warnings and side effects discussed with patient. Denies suicidal ideation at this time. Will continue current therapy and patient is to call with increased or worsening symptoms. Call the clinic during working hours if necessary. Was also advised to call crisis hot line, 911 or go to nearest emergency room in case of crisis. Body mass index 30+ - obesity 320869700 Z68.30 Health Concerns Section Related Observation LastModified by Organization Detai ls LastModified Time None Recorded Concern Status LastModified by Organization Details LastModified Time None Recorded Advance Directives Directive N: Payers Encounter Date Sequence Insurance Name Policy Number Policy [place] Covered Member ID [place] Member ID Guarantor Name 01/25/2022 1 [place] [id number] 5 Mercedezberyl Velarde [id number] 29 Mercedezberyl Velarde 03/08/2022 1 [place] [id number] 5 Mercedez Devi Velarde [id number] Mercedez Devi Velarde 05/09/2022 1 [place] [id number] 5 Mercedez Devi Velarde [id number] 29 Mercedez Devi Velarde 12/14/2022 1 *SELF PAY* Eric sahu Devi Syd Notes Date Note Type Note Provider Name and Address Organization Details Recorded Time 01/25/2022 text/html Anxiety/Depressi onRepor pattie bypatient.Severity:clarissa es suicidal ideations; able to maintain relationships; does not interfere with activities of daily living; symptoms improved; stabilizing Duration:chronic Onset/Timing:gradual Context:no major life stressors Associated Symptoms:denies homicidal ideations; no significant weight gain; no significant weight loss; no visual/auditory hallucinations; no shortness of breath; mood good; no anxiety; no crying spells I am proceeding with this evaluation at the direct request of the patient. I have verified this is the correct patient and have obtained verbal consent from the patient/ surrogate to perform this voluntary telemedicine encounter evaluation. I have explained risks (including potential loss of confidentiality), benefits, alternatives, and the potential need for subsequent face to face care. Patient/surrogate understands that there is a risk of medical inaccuracies given that our recommendations will be made based on reported data. Knowing that there is a risk that this information is not reported accurately, and that the telemedicine audio, or data feed may be incomplete, the patient agrees to proceed with evaluation and holds us harmless knowing these risks. In this evaluation, we will be providing recommendations only. The patient/surrogate has been notified that other healthcare professionals (including students, residents and technical personnel) may be involved in this audio evaluation. All laws concerning confidentiality and patient access to medical records and copies of medical records apply to telemedicine. I have reviewed this as above verification and consent paragraph with the patient/surrogate. Mercedez presents for urgent care and emergency room follow up. Went to last where a chest xray was completed and was normal. She was discharged home. A few days ago she went to the emergency room for the shortness of breath. D dimer and covid test were both completed and were negative and she was discharged home. Reports slight dry cough every once in a while. Has woken her up in the middle of the night. Reports asthma as a child but was around her mother who was a chain smoker she reports. Once she moved out from her mothers house felt that her breathing improved. Denies wheezing. She has not been prescribed anything. CHRIS GERMAN NP [address] [facility],MELISSA MEI [[email or web address]], [place], [phone], [facility] 01/25/2022 10:32:48 03/08/2022 text/html Asthma F/UReport ed bypatient.Quality:dyspn ea; was told she had asthma when she was around 6 but contributed this to second hand smoke Severity:not able to sleep during episode;interferes with daily activities(has some trouble exercising.) Onset/Timing:< 2 days/month; barely uses the albuterol, reports gets dizzy from it and would not help much Status:worsening Modifying Factors:exercise; smoke Associated Symptoms:no fever; no irritability; no cough; normal appetite;shortness of breathNotes:Mercedez has also been experiencing intolerance to hot temperature. Reports she gets very hot has to lay down and is down for the day. Is wondering if this is a side effect of her prozac although this issue just started the last few months and she has been on prozac for a few years now. CHRIS GERMAN NP [address] [facility] [[email or web address]], [place], [phone], [facility] 03/08/2022 11:40:31 05/09/2022 text/html Asthma F/UReport ed bypatient.Quality:dyspn ea;tightness;cough Severity:not able to sleep during episode;interferes with daily activities(has some trouble exercising, off and on) Onset/Timing:using albuterol once a month Status:worsening Associated History:history of allergic rhinitis Modifying Factors:exercise; smoke Associated Symptoms:no fever; no irritability; no cough; normal appetite;shortness of breath Antiasthmatics:short-ac ting beta agonist: Here for SOB , Symptoms started several months ago, diagnosed with Asthma as a child. Does have hx of seasonal allergies. taking claritin otc JAYLA WIN, RAMIN, BC, GAS ROLLER OPERATOR [address] [facility],MELISSA MEI [[email or web address]], [place], , [facility] 05/09/2022 13:34:40 12/14/2022 text/html Anxiety/Depressi onRepor pattie bypatient.Severity:clarissa es suicidal ideations; able to maintain relationships; does not interfere with activities of daily living; symptoms improved; stabilizing Duration:chronic Onset/Timing:gradual Context:getting in 2 weeks. Modifying Factors:selective serotonin reuptake inhibitor (SSRI) Associated Symptoms:denies homicidal ideations; no significant weight gain; no significant weight loss; no visual/auditory hallucinations; mood good; sleeping well; appetite good; maintaining functionality; no apprehensionAsthma F/UReported bypatient.Quality:well- controlled with antiasthmatics Severity:able to sleep during episode; does not interfere with daily activities Duration:has only had to use albuterol once. Status:improving Modifying Factors:avoidance of triggers; compliance with asthma regimen; short-acting beta agonist Associated Symptoms:no fever; no fatigue; no irritability; no cough; normal appetite; no changes in productivity; no shortness of breath Antiasthmatics:complian t with maintenance asthma medication; no prior adverse reaction(s) CHRIS GERMAN NP [address] [facility],MELISSA MEI [[email or web address]], [place], [address], [facility] 12/14/2022 12:32:49 OBGyn Episode No OBEpisode recorded.
--- OUTSIDE RECORDS SUMMARY | 2024-12-24 13:45 | XMS_ITS | Data Portability ---
Author Organization [facility] KARINRafael Quinonez Address [address] [place] [address] Assessment No assessment recorded. Plan of Treatment Reminders Order Date Submit Date Provider Last Modified By Organization Details Last Modified Time Details Appointments None recorded . Lab TSH + free T4, serum 025 [facility], [address] [place] [address], [facility] [address], [place], [address], 5 13:21:48 CBC 025 [facility], [address] [place] [address], [address], [place], [address], 5 13:21:53 CMP, serum or plasma 025 [facility], [address] [place] [address], [facility] [address], [place], [address], 5 13:21:51 lipid panel, serum 025 [facility], [address] [place] [address], [address], [place], [address], 5 13:21:50 Referral None recorded . Procedures None recorded . Surgeries None recorded . Imaging US, upper back - mass at base of skull 025 025 [facility], [address] [place], [address], 15:05:28 Medication Orders None recorded . Patient TargetsNo targets recorded. Patient Instructions Encounter Date Encounter Id Patient Instructions Last Modified By Organization Details Last Modified Time 12/03/2024 [id number] A healthy lifestyle: care instructions [email or web address] Not available 12/03/2024 14:27:42 12/17/2024 [id number] A healthy lifestyle: care instructions [email or web address] Not available 12/17/2024 14:54:03 Reason for Referral None Reported. Results Created Date Observation Date Name Description Value Unit Range Abnormal Flag Note LastModifiedBy Organization Detail LastModifiedTime 12/04/1912/04/2024 TSH+F REE T4 TSH 1.010 uIU/m L 0.450- 4.500 Not Available [address], [address], 12/04/2024 13:21:48 12/04/1912/04/2024 TSH+F REE T4 T4,free(dire ct) 1.24 NG/dL 0.82-1 .77 Not Available [address], [address], 12/04/2024 13:21:48 12/04/19 25 12/04/2024 LIPID PANEL cholesterol, total 189 mg/dL 100-19 9 Not Available [address], [address], 12/04/2024 13:21:50 12/04/1912/04/2024 LIPID PANEL triglyceride s 108 mg/dL 0-149 Not Available [address], [address], 12/04/2024 13:21:50 12/04/1912/04/2024 LIPID PANEL HDL cholesterol 59 mg/dL >39 Not Available [address], [address], 12/04/2024 13:21:50 12/04/19 25 12/04/2024 LIPID PANEL VLDL cholesterol fanny 19 mg/dL 5-40 Not Available [address], [address], 12/04/2024 13:21:50 12/04/19 25 12/04/2024 LIPID PANEL LDL chol calc ([facility]) 111 mg/dL 0-99 above high normal Not Available [address], [address], 12/04/2024 13:21:50 12/04/19 25 12/04/2024 COMP. METAB OLIC PANEL (14) glucose 93 mg/dL 70-99 Not Available [address], [address], 12/04/2024 13:21:51 12/04/19 25 12/04/2024 COMP. METAB OLIC PANEL (14) BUN 9 mg/dL 6-20 Not Available [address], [address], 12/04/2024 13:21:51 12/04/19 25 12/04/2024 COMP. METAB OLIC PANEL (14) creatinine 0.82 mg/dL 0.57-1 .00 Not Available [address], [address], 12/04/2024 13:21:51 12/04/19 25 12/04/2024 COMP. METAB OLIC PANEL (14) eGFR 99 mL/mi n/1.7 3 >59 Not Available [address], [address], 12/04/2024 13:21:51 12/04/19 25 12/04/2024 COMP. METAB OLIC PANEL (14) BUN/creatini ne ratio 11 9-23 Not Available [address], [address], 12/04/2024 13:21:51 12/04/19 25 12/04/2024 COMP. METAB OLIC PANEL (14) sodium 137 mmol/ L 134-14 4 Not Available [address], [address], 12/04/2024 13:21:51 12/04/19 25 12/04/2024 COMP. METAB OLIC PANEL (14) potassium 4.2 mmol/ L 3.5-5. 2 Not Available [address], [address], 12/04/2024 13:21:51 12/04/19 25 12/04/2024 COMP. METAB OLIC PANEL (14) chloride 101 mmol/ L 96-106 Not Available [address], [address], 12/04/2024 13:21:51 12/04/19 25 12/04/2024 COMP. METAB OLIC PANEL (14) carbon dioxide, total 20 mmol/ L 20-29 Not Available [address], [address], 12/04/2024 13:21:51 12/04/19 25 12/04/2024 COMP. METAB OLIC PANEL (14) calcium 9.3 mg/dL 8.7-10 .2 Not Available [address], [address], 12/04/2024 13:21:51 12/04/19 25 12/04/2024 COMP. METAB OLIC PANEL (14) protein, total 7.6 g/dL 6.0-8. 5 Not Available [address], [address], 12/04/2024 13:21:51 12/04/19 25 12/04/2024 COMP. METAB OLIC PANEL (14) albumin 4.5 g/dL 4.0-5. 0 Not Available [address], [address], 12/04/2024 13:21:51 12/04/19 25 12/04/2024 COMP. METAB OLIC PANEL (14) globulin, total 3.1 g/dL 1.5-4. 5 Not Available [address], [address], 12/04/2024 13:21:51 12/04/19 25 12/04/2024 COMP. METAB OLIC PANEL (14) bilirubin, total 0.7 mg/dL 0.0-1. 2 Not Available [address], [address], 12/04/2024 13:21:51 12/04/19 25 12/04/2024 COMP. METAB OLIC PANEL (14) alkaline phosphatase 104 IU/L 44-121 Not Available [address], [address], 12/04/2024 13:21:51 12/04/19 25 12/04/2024 COMP. METAB OLIC PANEL (14) AST (SGOT) 25 IU/L 0-40 Not Available [address], [address], 12/04/2024 13:21:51 12/04/19 25 12/04/2024 COMP. METAB OLIC PANEL (14) ALT (SGPT) 24 IU/L 0-32 Not Available [address], [address], 12/04/2024 13:21:51 12/04/19 25 12/04/2024 CARDI OVASC ULAR REPOR T interpretati on Note Suppl emjada al yuliet t is avail able. Not Available [facility] & [address], [address], 12/04/2024 13:21:52 12/04/1912/04/2024 SHALONDA Plata pdf . Not Available [address], [address], 12/04/2024 13:21:52 12/04/1912/04/2024 CBC, PLATE LET, NO DIFFE RENTI AL WBC 8.2 x10e3 /uL 3.4-10 .8 Not Available [address], [address], 12/04/2024 13:21:53 12/04/1912/04/2024 CBC, PLATE LET, NO DIFFE RENTI AL RBC 5.24 x10e6 /uL 3.77-5 .28 Not Available [address], [address], 12/04/2024 13:21:53 12/04/1912/04/2024 CBC, PLATE LET, NO DIFFE RENTI AL hemoglobin 14.8 g/dL 11.1-1 5.9 Not Available [address], [address], 12/04/2024 13:21:53 12/04/1912/04/2024 CBC, PLATE LET, NO DIFFE RENTI AL hematocrit 46.3 % 34.0-4 6.6 Not Available [address], [address], 12/04/2024 13:21:53 12/04/1912/04/2024 CBC, PLATE LET, NO DIFFE RENTI AL MCV 88 fL 79-97 Not Available [facility] & [address], [address], 12/04/2024 13:21:53 12/04/1912/04/2024 CBC, PLATE LET, NO DIFFE RENTI AL MCH 28.2 pg 26.6-3 3.0 Not Available [address], [address], 12/04/2024 13:21:53 12/04/19 25 12/04/2024 CBC, PLATE LET, NO DIFFE RENTI AL MCHC 32.0 g/dL 31.5-3 5.7 Not Available [address], [address], 12/04/2024 13:21:53 12/04/1912/04/2024 CBC, PLATE LET, NO DIFFE RENTI AL RDW 13.5 % 11.7-1 5.4 Not Available [address], [address], 12/04/2024 13:21:53 12/04/1912/04/2024 CBC, PLATE LET, NO DIFFE RENTI AL platelets 364 x10e3 /uL 150-45 0 Not Available [address], [address], 12/04/2024 13:21:53 Result Notes None recorded. Procedures Surgical History Date Name Laterality Status Provider Name and Address Organization Details Recorded Time removal of urinary calculus completed Dariela Brumfield [place] - [facility] 12/03/2024 14:05:51 Imaging Results None recorded. Procedure Notes None recorded. Medical Equipment None Reported. Allergies No known drug allergies Medications Name Sig Start Date Stop Date Status Note LastModified by Organization Details LastModified Time escitalopram 10 mg tablet TAKE 1 TABLET BY MOUTH ONCE DAILY FOR 30 DAYS 12/03 completed Not Available Not Available Not Available escitalopram 20 mg tablet TAKE 1 TABLET BY MOUTH ONCE DAILY IN THE EVENING active Not Available Not Available No t Available Vitals Date Recorded Body weight Body mass index (BMI) Body height Oxygen saturation Oxygen saturation in Arterial blood by Pulse oximetry Heart rate Respiratory rate Systolic blood pressure Diastolic blood pressure Provider Name and Address Organization Details Last Updated DateTime 5 675538. 02 g 35.3 kg/m2 182.88 cm 98 % 98 % 60 /min 16 /min 122 mm[Hg] 76 mm[Hg] Dariela Brumfield MA [facility] 14:09:44 Date Recorded Body height Body mass index (BMI) Body weight Oxygen saturation Oxygen saturation in Arterial blood by Pulse oximetry Heart rate Respiratory rate Systolic blood pressure Diastolic blood pressure Provider Name and Address Organization Details Last Updated DateTime 182.88 cm 34.9 kg/m2 330508. 24 g 98 % 98 % 68 /min 16 /min 118 mm[Hg] 80 mm[Hg] Dariela Brumfield MA [facility] 14:36:19 Social History Question Answer Notes LastModified by [employer] ion Details LastModified Time Tobacco Smoking Status Never Smoker Dariela Brumfield [place] null, [facility] 12/03/2024 14:02:49 Are You Blind Or Do You Have Difficulty Seeing? No Information n ot available 12/03/2024 What Is Your Level Of Caffeine Consumption? Moderate Information not available 12/03/2024 In The 14 Days Before Symptom Onset, Have You Had Close Contact With A Laboratory-confirm ed COVID-19 While That Case Was Ill? No Information n ot available 12/03/2024 In The 14 Days Before Symptom Onset, Have You Had Close Contact With A Person Who Is Under Investigation For COVID-19 While That Person Was Ill? No Information not available 12/03/2024 Have You Been To An Area Known To Be High Risk For COVID-19? No Information not available 12/03/2024 Are You Deaf Or Do You Have Serious Difficulty Hearing? No Information not available 12/03/2024 What Type Of Diet Are You Following? REGULAR Information n ot available 12/03/2024 Are There Any Guns Present In Your Home? No Information not available 12/03/2024 What Was The Date Of Your Most Recent Tobacco Screening? 12/17/2024 Information not available 12/17/2024 What Is Your Relationship Status? Information not available 12/03/2024 Do You Use Your Seat Belt Or Car Seat Routinely? Yes Information not available 12/03/2024 Do You Have Smoke And Carbon Monoxide Detectors In Your Home? Yes Information not available 12/03/2024 Are You Passively Exposed To Smoke? No Information no t available 12/03/2024 Do You Use Sunscreen Routinely? Yes Information not available 12/03/2024 Sex: Female Functional Status Question Answer Note LastModified by Organizat ion Details LastModified Time Do you use any illicit or recreational drugs? No Information not available 12/03/2024 Do you or have you ever used any other forms of tobacco or nicotine? No Information not available 12/03/2024 What is your level of alcohol consumption? Occasional Information not available 12/03/2024 Are you currently employed? Yes Information not available 12/03/2024 Are you able to care for yourself? Yes Information not available 12/03/2024 What is your occupation? [employer] Information not available 12/03/2024 What is your exercise level? Moderate Information not available 12/03/2024 Mental Status Question Answer Note LastModified by Organization D etails LastModified Time Do you feel stressed (tense, restless, nervous, or anxious, or unable to sleep at night)? [id number] Information not available 12/03/2024 Family History Relationship Description Onset Age of this Age Resolved Age Notes LastModified by Organization Details LastModified Time Mother Hypertensive disorder [email or web address] Not available 12/03 14:01:34 Mother Cyst of ovary [email or web address] Not available 12/03 14:02:17 Maternal Uncle Hypertensive disorder [email or web address] Not available 12/03 14:01:34 Maternal Uncle Hypercholest erolemia kspraggsma Not available 12/03 14:01:42 Maternal Aunt Hypertensive disorder kspraggsma Not available 12/03 14:01:34 Maternal Grandmother Hypertensive disorder kspraggsma Not available 12/03 14:01:34 Maternal Grandfather Hypertensive disorder kspraggsma Not available 12/03 14:01:34 Paternal Grandmother Malignant tumor of breast kspraggsma Not available 12/03 14:01:57 Paternal Grandmother Malignant tumor of thyroid gland kspraggsma Not available 12/03 14:02:07 Medical History Condition Response Coronary Artery Disease N Other N High Blood Pressure N Atrial Fibrillation N Thyroid Problems Y Kidney or Bladder Problems Y GI Problems N Depression N COPD N Blood Clots N Have you had a mammogram in the last yea r? N Skin Problems N Eating Disorder N Anemia N Heart Attack (OR) N Anxiety Disorder Y Diabetes N Muscle, Joint, or Bone Problems Y Arthritis N Seizures/Epilepsy N Have you had a colonoscopy in the last 1 0 years? N Acid Reflux (GERD) N Cancer N Stroke N Asthma Y Allergies Y Have you had a PSA blood test in the las t year? N ADHD N Substance Abuse N High Cholesterol N Hepatitis N Liver Disease N Schizophrenia N Headaches N Heart Failure N Osteoporosis N Gynecological History Statement/Question Response Date of Last Pap Smear Duration of Flow (days) 5 Date of LMP 11/21/2024 LMP Approximate Obstetrics History GPAL:G 0 P 0 0 0 0 Immunizations Vaccine Type Date Status Note Provider Nam e and Address Organization Details Recorded Time Influenza, split virus, quadrivalent, PF 05/16/2023 completed Not Available [facility] 14:32:[facility] Past Encounters Encounter ID Performer Location Encounter Start Date Encounter Closed Date Diagnosis/Indication Diagnosis SNOMED-CT Code Diagnosis ICD10 Code Diagnosis Note [id number] Justo Gutierrez MD [facility] [address] [place] [address] 12/03/2024 13:52:13 12/04/2024 09:40:25 Obese class II 7694340839 61023 E66.812 Mixed anxi ety and depressive disorder 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 F41.8 Overweight 524399374 E66 .3 [id number] Justo Gutierrez MD [facility] [address] [place] [address] 12/17/2024 14:31:41 12/18/2024 08:38:29 Lipoma of back 822966134 D17.1 Obese class I 6804225269 33861 E66.811 Health Concerns Section Related Observation LastModified by Organization Detai ls LastModified Time None Recorded Concern Status LastModified by Organization Details LastModified Time None Recorded Advance Directives Directive None Recorded Payers Encounter Date Sequence Insurance Name Policy Number Policy [place] Covered Member ID [place] Member ID Guarantor Name 12/03/2024 1 [employer]) [facility] [place] [id number] [facility] [place] 12/17/2024 1 [employer] [facility] [id number] [facility] [place] Notes Date Note Type Note Provider Name and Address Organization Details Recorded Time 12/03/2024 text/html new patient..trish ck up..has a bump on neck thought was bad posture but a chiro took an xray that was concerning..left eye has slowly closing over last 5 years..has opthalmology upcoming..has a history of a cyst on thyroid...hx of kidney stones since [age]...uses apple cider vinegar...chronic migraines Salo Yin PA-C Attn: [address] [place], [address], [facility] 12/03/2024 14:29:43 12/17/2024 text/html review labs..having eye surgery on left eye in next couple months vs ptosis.....has been coming on over last 5 years..labs are grossly normal...so why the buffalo hump? no family hx of similar Salo Yin PA-C Attn: [address] [facility], [place], [address], [facility] 12/17/2024 14:55:13 OBGyn Episode No OBEpisode recorded.
== END 2024-12-24 13:35 | disposition home or self-care (01) ==
PROVIDERS: PCP Physician Assistant; Visit Provider Physician Assistant
DX: D17.1 Benign lipomatous neoplasm of skin and subcutaneous tissue of trunk (principal)
CPT/HCPCS: 76604